=== PATIENT | female | born 1995 | race Two or more races ===

== ENCOUNTER 2021-05-26 09:05 | Inpatient (IN) | payer OTHER ==
[~2021-05-26] VITALS: Ht 157.5 cm; Wt 79.8 kg
[2021-05-26] MEDS ORDERED: FOLIC ACID0.8 M1 PO (09:11)
[2021-05-26] MEDS ORDERED: VITAMIN C500 MG PO (09:12)
== END 2021-05-29 14:37 | disposition home or self-care (01) | DRG 785 ==
LOC: O/R 09:05 → OB/GYN 09:05 → LDR 09:05 → O/R 12:17 → OB/GYN 14:01
PROVIDERS: ADMIT Obstetrics & Gynecology Obstetrics; ATTEND Obstetrics & Gynecology Obstetrics
PROC: 0UB70ZZ Excision of Bilateral Fallopian Tubes, Open Approach (ICD-10-PCS; 2021-05-26)
PROC: 4A1HXFZ Monitoring of Products of Conception, Cardiac Rhythm, External Approach (ICD-10-PCS; 2021-05-26)
PROC: 10D00Z1 Extraction of Products of Conception, Low, Open Approach (ICD-10-PCS; principal; 2021-05-26 11:00)
DX: O34.211 Maternal care for low transverse scar from previous cesarean delivery (principal); Z30.2 Encounter for sterilization; Z37.0 Single live birth; Z3A.38 38 weeks gestation of pregnancy; Z20.822 Contact with and (suspected) exposure to COVID-19

== ENCOUNTER 2021-05-30 14:37 | Outpatient (CLI) | payer OTHER ==
[~2021-05-30 14:37] MED LIST: FOLIC ACID0.8 M1 PO; VITAMIN C500 MG PO
== END 2021-05-30 15:10 | disposition home or self-care (01) ==
LOC: LAB 14:37
PROVIDERS: ATTEND Pediatrics Neonatal-Perinatal Medicine
DX: Z20.822 Contact with and (suspected) exposure to COVID-19 (principal)